=== PATIENT | male | born 1970 | race Hispanic/Latino ===

== ENCOUNTER → 2019-01-15 | Outpatient (CLI) | payer OTHER ==
[~2019-01-15] VITALS: Ht 172.7 cm; Wt 73.9 kg
[~2019-01-15] MED LIST: METOPROLOL TARTRATE 1 MG/ML 5ML VIAL IV SCH; REGADENOSON 0.4 MG/5 ML PF SYG IVP SCH
[2019-01-15 13:52] VITALS: BP 205/126
== END | disposition home or self-care (01) ==
LOC: EDUNIT# 08:20 → SHCH 08:32
PROVIDERS: ATTEND Internal Medicine Cardiovascular Disease
DX: R94.31 Abnormal electrocardiogram [ECG] [EKG] (principal); I11.9 Hypertensive heart disease without heart failure
CPT/HCPCS: 78452; 93017; 96374; A9500 ×2; J2785; J3490

== ENCOUNTER → 2019-02-12 | Outpatient (CLI) | payer OTHER | END | disposition home or self-care (01) | LOC: SHCH 15:38 | PROVIDERS: ATTEND Internal Medicine Cardiovascular Disease | DX: I10 Essential (primary) hypertension (principal); R94.31 Abnormal electrocardiogram [ECG] [EKG]; I51.7 Cardiomegaly | CPT/HCPCS: 93306 ==